=== PATIENT | female | born 1990 | race Caucasian/White ===

== ENCOUNTER 2017-04-25 06:15 | Inpatient (IN) | payer OTHER, SELFPAY ==
[~2017-04-25] VITALS: Ht 175.3 cm; Wt 75.0 kg
--- NOTE | ~2017-04-25 | OR ---
PATIENT'S NAME: PHILIPP LEYVA [facility] AGE: 26 Y [address] ROOM: [place] [address] LOCATION: GOBS ADMIT DATE: 04/25/2017 OR/Procedure Report DISCHARGE DATE: FAMILY PHYSICIAN: PHYSICIAN, NO ATTENDING PHYSICIAN: Carolina Ross SURGEON: Carolina Ross MD [employer]: DATE OF PROCEDURE: 04/25/2017 PREOPERATIVE DIAGNOSES: 1. Intrauterine at 38 weeks 2 days. 2. Premature rupture of membranes. POSTOPERATIVE DIAGNOSES: 1. Intrauterine at 38 weeks 2 days. 2. Premature rupture of membranes. PROCEDURE PERFORMED: Spontaneous vaginal delivery. ESTIMATED BLOOD LOSS: 300 mL. ANESTHESIA: Epidural. FINDINGS: Male infant. scores 8 and 9. Weight 6 pounds 14 ounces. Intact placenta, 3-vessel cord. First-degree perineal laceration. Clear amniotic fluid. INDICATIONS: This patient is a 26-year-old G2, P1-0-0-1 female at 38 weeks 2 days. She presented with ruptured membranes. She had an uncomplicated . She had Pitocin augmentation and progressed along a normal labor curve to complete. She underwent expulsive efforts for just a few contractions. DESCRIPTION OF PROCEDURE: With expulsive effort, the head delivered over an intact perineum. The rest of the fetus delivered. The nose and mouth were bulb suctioned. The cord was clamped and cut. The infant was handed to the awaiting team. Cord blood was drawn. The placenta delivered with manual traction. Cervix, vagina, and perineum were examined. A first-degree perineal laceration was noted and repaired in the standard fashion with Vicryl suture. COMPLICATIONS: None. CONDITION: Mother stable in room, to [facility]. PATIENT'S NAME: PHILIPP LEYVA [facility] AGE: 26 Y [address] ROOM: [place] [address] LOCATION: GOBS ADMIT DATE: 04/25/2017 OR/Procedure Report DISCHARGE DATE: FAMILY PHYSICIAN: PHYSICIAN, NO ATTENDING PHYSICIAN: Carolina Ross MD YAZAN PERKINS/modl /[id number] d: 04/25/17 190 t: 05/06/17 0839, OPERATIVE SUMMARY
[2017-04-25 07:39] LABS: BASOPHIL % 0.5 %; EOSINOPHIL # 0.1 K/uL (0.0-0.5); EOSINOPHIL % 1.2 %; HEMATOCRIT 33.4 % (33.0-46.0); HEMOGLOBIN 11.2 g/dL (11.0-15.0); IMMATURE GRANULOCYTE % 0.2 %; LYMPHOCYTE # 1.6 K/uL (0.8-4.0); LYMPHOCYTE % 27.8 %; MCH 30.3 pg (27.0-34.0); MCHC 33.5 gm/dL (32.0-36.5); MCV 90.3 fl (83.0-98.0); MONOCYTE # 0.5 K/uL (0.0-1.0); MONOCYTE % 8.8 %; MPV 12.8 fl (9.4-12.4); NEUTROPHIL # (ANC) 3.6 K/uL (1.8-7.8); NEUTROPHIL % 61.5 %; NRBC % 0 /100WBC (0-0.00); PLATELET COUNT 180 K/uL (150-450); RDW-CV 13.2 % (11.9-14.6); WBC 5.8 K/uL (4.0-11.0)
[2017-04-25] MEDS ORDERED: ZANTAC300 MG PO (08:17)
[2017-04-25] MEDS ORDERED: FLINTSTONES1 EAC1 PO (08:17)
--- NOTE | 2017-04-25 17:56 | NUR ---
Last VS: T:98.3 P:83 R: 16 BP: 119/71 Last pain med: None given Breasts: , Nipples: no isssues Fundus: firm/midline Lochia: small Epis/Perineum: 1st degree lac Voiding well: yes Significant event: *.Up ad jorge. Independent with cares.
--- NOTE | 2017-04-26 04:51 | NUR ---
PATIENT REPORTS FEELING DIZZY AT 0445. BP TAKEN, 119/69. PATIENT STATES SHE HAS NOT EATEN IN QUITE A WHILE. OFFERED A SANDWICH OR HER PIZZA, STATES SHE JUST WANTS CRACKERS. GIVEN CRACKERS.
[2017-04-26 04:55] LABS: BASOPHIL % 0.4 %; EOSINOPHIL # 0.1 K/uL (0.0-0.5); EOSINOPHIL % 1.9 %; HEMATOCRIT 30.8 % (33.0-46.0); HEMOGLOBIN 10.2 g/dL (11.0-15.0); IMMATURE GRANULOCYTE % 0.1 %; LYMPHOCYTE # 2.2 K/uL (0.8-4.0); LYMPHOCYTE % 30.1 %; MCH 30.2 pg (27.0-34.0); MCHC 33.1 gm/dL (32.0-36.5); MCV 91.1 fl (83.0-98.0); MONOCYTE # 0.7 K/uL (0.0-1.0); MONOCYTE % 9.5 %; MPV 12.7 fl (9.4-12.4); NEUTROPHIL # (ANC) 4.3 K/uL (1.8-7.8); NRBC % 0 /100WBC (0-0.00); PLATELET COUNT 145 K/uL (150-450); RBC 3.38 M/uL (3.50-5.00); RDW-CV 13.6 % (11.9-14.6); WBC 7.4 K/uL (4.0-11.0)
--- NOTE | 2017-04-26 05:32 | NUR ---
VSS. FUNDUS FIRM, -1, SMALL FLOW. IV DC'D. WILL NEED RHOGAM BEFORE DISMISSAL. LAST HAD 2 PERCOCET AT 0250, MOTRIN AT 0008. VOIDING WITHOUT DIFFICULTY.
[2017-04-26] MEDS ORDERED: DERMOPLAST SPRA56 GM TOP (15:18)
[2017-04-26] MEDS ORDERED: PERCOCET 5-3251 EACH PO (15:19)
[2017-04-26] MEDS ORDERED: MOTRIN800 MG PO (15:19)
--- NOTE | 2017-04-26 18:00 | NUR ---
Last VS: T:98.2 P:85 R: 16 BP: 109/64 Pain rating: . Last pain med: Percocet AT 1658 Medicated at: Effective: Partial relief Breasts: , Nipples: Fundus: FIRM AND 1 FINGER DOWN Lochia: SMALL FLOW Epis/Perineum: BOTTOM OK Voiding well: YES Significant event: *. PATIENT PLANNING HOME YET TONIGHT. HAS SCRIPT FOR HOME PAIN MEDICATION. AND NIPPLE CREAM. PAPER WORK TYPED AND READY TO GO OVER.
== END 2017-04-26 19:35 | disposition disaster alternative care site (69) | DRG 775 ==
LOC: GOBS 06:15 → GOBM 06:15 → GOBS 06:16 → GOBM 07:16 → GOBS 07:33 → GOBM 05-07 06:15
PROVIDERS: ADMIT Obstetrics & Gynecology
PROC: 4A1HX4Z Monitoring of Products of Conception, Cardiac Electrical Activity, External Approach (ICD-10-PCS; principal; 2017-04-25)
PROC: 0HQ9XZZ Repair Perineum Skin, External Approach (ICD-10-PCS; principal; 2017-04-25)
PROC: 10E0XZZ Delivery of Products of Conception, External Approach (ICD-10-PCS; principal; 2017-04-25)
PROC: 3E033VJ Introduction of Other Hormone into Peripheral Vein, Percutaneous Approach (ICD-10-PCS; principal; 2017-04-25)
DX: O70.0 First degree perineal laceration during delivery (principal); O42.92 Full-term premature rupture of membranes, unspecified as to length of time between rupture and onset of labor; Z3A.38 38 weeks gestation of pregnancy; Z37.0 Single live birth
CPT/HCPCS: J2001; J2590; J2791; J3010; J7120